=== PATIENT | male | born 1995 | race Caucasian/White ===

== ENCOUNTER 2017-11-04 13:48 | Emergency (ER) | payer BC ==
--- NOTE | 2017-11-04 14:51 | EDPHY ---
H & P Smoking Status: Never smoked Time Seen by Provider: 11/04/17 13:54 HPI/ROS: CHIEF COMPLAINT: Left knee injury HISTORY OF PRESENT ILLNESS: 22-year-old male presents to the emergency department with left knee injury. The patient was snowboarding and fell and hit his knee on a rock. He did not hit his head or lose consciousness. He denies any other trauma or injury. The incident happened 1.5 hr prior to arrival. ROS: Denies numbness or tingling in his toes, retained foreign body, pain in his left ankle or hip. (Althea Beck) Past Medical/Surgical History: Negative (Althea Beck) Social History: [employer] student (Althea Beck) Physical Exam: On examination the patient has a 3 cm laceration to the left anterior aspect of the knee overlying tibial tubercle. No evidence of retained foreign body. No evidence of bleeding. No palpable bony tenderness. He is able to do a full straight leg raise as well as flexion of his left knee without difficulty. Normal sensation to light touch with normal 2 point discrimination. Strong dorsalis pedis pulse on the dorsal aspect of the left foot. Gait is not tested. (Althea Beck) Constitutional: Initial Vital Signs Temperature (C) 36.5 C 11/04/17 13:50 Heart Rate 59 L 11/04/17 13:50 Respiratory Rate 18 11/04/17 13:50 Blood Pressure 114/55 L 11/04/17 13:50 O2 Sat (%) 100 11/04/17 13:50 O2 Delivery Mode Room Air Allergies/Adverse Reactions: No Known Allergies Allergy (Unverified 11/04/17 13:49) Home Medications: Medication Instructions Recorded NK [No Known Home Meds] 11/04/17 MDM/Departure - [facility]: I viewed and interpreted images myself - [facility] Results: X-rays of the left knee reveal no fractures. This is reviewed by myself the PAC system. Radiology interpretation to follow. (Althea Beck) Procedures: Laceration repair. Verbal consent was obtained from the patient. The 4 cm laceration on the left anterior knee was anesthetized using 1% lidocaine with epinephrine. The wound was irrigated with saline, draped and explored to its base with a gloved finger. There were no deep structures involved. No tendon injury was identified. The wound was repaired with 4 0 Vicryl, 3 sutures and 4 0 Ethilon, 7 sutures. The wound repair was complex The procedure was performed by myself. (Althea Beck) ED Course/Re-evaluation: 22-year-old male presents to the emergency department with left knee laceration. Wound was repaired, see procedure note. X-rays reveal no fractures. Patient was given wound care precautions. (Althea Beck) The patient was evaluated and managed by the physician assistant media buyer. I have reviewed this chart and I agree with the findings and plan of care as documented , as indicated by my signature. I am the secondary supervising physician. ( Fely Ray) - Depart Disposition: Home, Routine, Self-Care Clinical Impression: Laceration of left knee Qualifiers: Encounter type: initial encounter Qualified Code(s): S81.012A - Laceration without foreign body, left knee, initial encounter Condition: Good Instructions: Care For Your Stitches (ED), Laceration (ED), Acute Wounds (ED) Additional Instructions: Wound Care Follow-Up: Removal of sutures in 10 days. Suture removal is complimentary in uncomplicated cases. Infection or abnormal findings would require reevaluation by the MD. In that case, you may be billed. Return if he notices any signs or symptoms of infection such as redness, swelling, increased pain, fever, purulent drainage. Ibuprofen 600 mg every 8 hr as needed for pain. Activity as tolerated. Avoid anything that causes hyperflexion tear left knee while the sutures are in place. Avoid open water as discussed. Referrals: James Akhtar MD [[facility] Primary Care Provider] - 2-3 days, if not improved ( Primary care provider transition manager)
[2017-11-14 10:36] VITALS: BP 110/61
== END 2017-11-04 15:27 | disposition home or self-care (01) ==
PROC: 0HQLXZZ Repair Left Lower Leg Skin, External Approach (ICD-10-PCS; principal; 2017-11-04)
DX: S81.012A Laceration without foreign body, left knee, initial encounter (principal); V00.311A Fall from snowboard, initial encounter; Y99.8 Other external cause status; Y93.23 Activity, snow (alpine) (downhill) skiing, snowboarding, sledding, tobogganing and snow tubing